=== PATIENT | female | born 1985 | race Caucasian/White ===

== ENCOUNTER 2017-08-23 18:58 | Emergency (ER) | payer MEDICAID, OTHER ==
[~2017-08-23] VITALS: Ht 154.9 cm; Wt 51.7 kg
[2017-08-23] MEDS ORDERED: NKM (19:34)
[2017-08-23] MEDS ORDERED: CLARITIN-D 121 EAC1 ORAL (20:46)
[2017-08-23 20:56] VITALS: BP 116/70
[2017-08-23 21:02] VITALS: BP 116/70
--- NOTE | 2017-08-24 14:51 | Emergency Room Report ---
History of Present Illness General Chief Complaint: Flu Like Symptoms Source: Patient Present Illness HPI Patient is a 31-year-old female who presented after increased nasal congestion, and nonproductive cough. The patient reports having symptoms for several days after recent upper respiratory illness was treated with azithromycin. The patient finished a course and and subsequently became ill. Patient denied any vomiting or diarrhea. She reported having increased facial pain. She denied productive cough Allergies: Coded Allergies: PENICILLINS (Verified Allergy, Unknown, 08/23/17) Patient History Past Medical History: see triage record Last Menstrual Period: last week Reviewed Nursing Documentation: PMH: Agreed, PSxH: Agreed Nursing Documentation-PM Past Medical History: No Stated History Review of Systems All Other Systems: negative except mentioned in HPI Physical Exam Vital Signs Date Time Temp Pulse Resp B/P (MAP) Pulse Ox O2 Delivery O2 Flow Rate FiO2 08/23/17 19:28 97.9 96 16 113/74 98 Room Air General Appearance: well appearing, no apparent distress, alert, GCS 15 Head: normocephalic, atraumatic ENT: hearing grossly normal, normal voice, other - clear rhinorhea Neck: full range of motion, supple Respiratory: lungs clear, normal breath sounds, no respiratory distress, speaking full sentences Cardiovascular #1: regular rate, rhythm, no edema Gastrointestinal: normal inspection Musculoskeletal: normal inspection, no calf tenderness Neurologic: normal inspection, alert, oriented x3, responsive, c application developer III-XII nml as tested, normal gait Psychiatric: normal inspection, judgement/insight normal, memory normal, mood/ affect normal Skin: no rash Medical Decision Making Diagnostic Impression: Primary Impression: Viral respiratory infection ER Course Patient presented for cough and nasal congestion.Differential diagnosis included but was not limited to bronchitis, sinusitis, allergic rhinitis, pneumonia, pericarditis, asthma, foreign body. Patient has a benign exam and does not appear to require any further imaging or laboratory testing at this time. Patient was given prescription for Claritin. The patient was advised to followup with her primary care physician for recheck in the next few days. Patient is advised to return if any worsening condition or if any changes in status that are concerning. This report is dictated with [employer] line out worker software which may occasionally lead to discrepancies related to use of this software. Last Vital Signs Date Time Temp Pulse Resp B/P (MAP) Pulse Ox O2 Delivery O2 Flow Rate FiO2 08/23/17 21:02 97.9 90 16 116/70 98 Room Air Status: improved Disposition: HOME, SELF-CARE Condition: Stable Scripts Loratadine/Pseudoephedrine (CLARITIN-D 12 HOUR TABLET) 1 Each Tab.er.12h 1 TAB ORAL EVERY 12 HOURS, #20 TAB Prov: Gurvinder Pickett 08/23/17 Referrals: [facility],REFERRING (PCP) Patient Instructions: Viral Respiratory Infection Gurvinder Pickett Aug 24, 2017 14:51
== END 2017-08-23 21:10 | disposition home or self-care (01) ==
LOC: EMR 21:00
DX: J06.9 Acute upper respiratory infection, unspecified (principal); B34.9 Viral infection, unspecified; Z88.0 Allergy status to penicillin
CPT/HCPCS: 99283